=== PATIENT | female | born 1970 | race Caucasian/White ===

== ENCOUNTER 2016-10-07 19:31 | Emergency (ER) | payer BC, OTHER ==
[2016-10-07 19:42] VITALS: BP 129/78
[2016-10-07] MEDS ORDERED: Acetaminophen/HYDROcodone 325-5 MG Tab PO ONE (19:53)
--- NOTE | 2016-10-07 19:53 | EDM.PDOC ---
ED HPI Trauma - General Chief Complaint: Upper Extremity Injury/Pain Stated Complaint: Hand/finger injury Time Seen by Provider: 10/07/16 19:40 Source: Reports: Patient, RN notes reviewed History Limitations: Reports: No limitations - History of Present Illness INITIAL COMMENTS - FREE TEXT/NARRATIVE: 46 year old female presents to the ED today with deformity of left 4th finger and left hand pain. No numbness or tingling. She is unable to straight her 4th finger. The injury occurred about 1 hour prior to arrival. The injury occurred as a result of being bucked off a horse. She denies additional injuries, loss of consciousness, neck pain, back pain, chest or abdominal pain. Allergies/ADRs: Allergies azithromycin [From Zithromax] Allergy (Verified 10/07/16 19:40) Edema iron Allergy (Verified 10/07/16 19:40) Edema Home Medications: Ambulatory Orders Lisinopril 10 mg PO DAILY 10/07/16 [Confirmed 10/07/16] Past Medical History - Past Health History Medical/Surgical History: Denies Medical/Surgical History Cardiovascular History: Reports: Hypertension Social & Family History - Tobacco Use Smoking Status *Q: Never Smoker - Recreational Drug Use Recreational Drug Use: No Review of Systems - Review of Systems Review Of Systems: See Below Respiratory: Reports: No Symptoms. Denies: Shortness of Breath Cardiovascular: Reports: no symptoms. Denies: chest pain GI/Abdominal: Reports: No symptoms. Denies: Abdominal pain Musculoskeletal: Reports: hand pain. Denies: neck pain, back pain, leg pain Skin: Reports: no symptoms Trauma Exam - Physical Exam Exam: See Below Exam Limited By: No limitations General Appearance: Reports: alert, WD/WN, no apparent distress Head: Reports: atraumatic, normocephalic Neck: Reports: non-tender, full range of motion, normal alignment Respiratory Exam: Reports: no respiratory distress, lungs clear, chest non- tender Cardiovascular: Reports: regular rate, rhythm Extremities: Reports: other (Dislocation of the left 4th PIP joint. Sensation is intact but patient is unable to extend the finger. No skin wounds or abrasions) ED TRAUMA EXTREMITY PROCEDURES - Joint Reduction Site: finger (L) Sedation: digital block Local anesthesia - Bupivicaine (Marcaine): 0.5% plain Local anesthetic volume: 5cc Pre-procedure NV status: normal Post-procedure NV status: normal Technique: traction/counter traction Number of Attempts: 1 Post-reduction imaging: completely reduced, no fracture seen Joint Reduction Complications: No Course - Vital Signs Last Recorded V/S: Last Vital Signs Temp 99.1 F 10/07/16 19:40 Pulse 87 10/07/16 19:40 Resp 18 10/07/16 19:40 BP 129/78 10/07/16 19:40 Pulse Ox 99 10/07/16 19:40 - Orders/Labs/Meds Meds: Medications Discontinued Medications Generic Name Dose Route Start Last Admin Trade Name Conor PRN Reason Stop Dose Admin Hydrocodone Bitart/Acetaminophen 1 tab 10/07/16 19:53 10/07/16 20:24 Shawnee 325-5 Mg PO 10/07/16 19:54 1 tab ONETIME ONE Administration Bupivacaine HCl 10 ml 10/07/16 20:19 10/07/16 22:01 Sensorcaine-Mpf 0.5% INJECT 10/07/16 20:20 10 ml ONETIME ONE Administration - Re-Assessments/Exams Free Text/Narrative Re-Assessment/Exam: Initial x-rays confirm dislocation of left 4th finger PIP joint. The patient was medicated with [place] and a digital block was performed prior to joint reduction. The joint was easily reduced. Post-reduction films reveal good alignment with no fractures. Patient placed in an aluminum splint and instructed to f/u with ortho. Offered pain medication prescription but patient declined. Discharge instructions as documented. Departure - Departure Time of Disposition: 22:08 Disposition: Home, Self-Care 01 Condition: good Clinical Impression: Dislocated finger Qualifiers: Encounter type: initial encounter Qualified Code(s): S63.259A - Unspecified dislocation of unspecified finger, initial encounter Instructions: Finger or Thumb Dislocation, [id number] Referrals: PCP,None [Primary Care Provider] - Forms: ED Department Discharge Additional Instructions: Rest, ice and elevate Splint for 2-3 days then may remove as tolerated Tylenol or Ibuprofen as needed for pain Follow-up with Dr. Chan ([phone]) or Dr. Gallo ([phone]) for recheck in 1- 2 weeks
[2016-10-07] MEDS ORDERED: Bupivacaine 0.5% 10 ML SDV INJECT ONE (20:19)
--- NOTE | 2016-10-08 10:53 | CR ---
Left fourth finger: Four views of the left fourth finger were obtained. Comparison: Previous hand study performed on the same day (time 7:54 PM). Previous dislocation has been reduced. Soft tissue swelling is identified. No discrete fracture is appreciated. Impression: 1. Dislocation seen previously has been reduced. Soft tissue swelling is noted. Diagnostic code #2
--- NOTE | 2016-10-08 10:53 | CR ---
Left hand: Four views of the left hand were obtained. Comparison: No previous study. Dislocation is identified within the PIP joint of the fourth digit. No fracture or other bony abnormality is identified on left hand study. Impression: 1. Dislocated PIP joint of the left fourth finger. Diagnostic code #3
== END 2016-10-07 22:15 | disposition home or self-care (01) ==
LOC: JD.ED 19:31
PROC: 0RSXXZZ Reposition Left Finger Phalangeal Joint, External Approach (ICD-10-PCS; principal; 2016-10-07)
DX: S63.285A Dislocation of proximal interphalangeal joint of left ring finger, initial encounter (principal); I10 Essential (primary) hypertension; Z79.899 Other long term (current) drug therapy; Z88.1 Allergy status to other antibiotic agents; V80.010A Animal-rider injured by fall from or being thrown from horse in noncollision accident, initial encounter
CPT/HCPCS: 26775; 73130; 73140; 99284; A9270; 26770; 64450; 99283